=== PATIENT | female | born 1990 | race Hispanic/Latino ===

== ENCOUNTER 2017-02-04 11:38 | Emergency (ER) | payer SELFPAY ==
[2017-02-04 11:54] VITALS: TEMP 97.9
--- NOTE | 2017-02-04 12:13 | C.PDOC ---
History Of Present Illness Patient is a 26 year old female who presents to the ER with a complaint of right sided cervical neck pain radiating to the right arm that began 2 days after patient slipped and fell; denies LOC at the time. Patient also reports intermittent nausea that is not present today and intermittent dizziness that is described as a spinning sensation. Denies fever, headache, vomiting and abdominal pain. Time Seen by Provider: 02/04/17 11:58 Chief Complaint (Nursing): Dizziness/Lightheaded History Per: Patient History/Exam Limitations: no limitations Onset/Duration Of Symptoms: Days Current Symptoms Are (Timing): Still Present Seizure Or Post-ictal Symptoms: None Fall Associated With With Symptoms: Yes Recent travel outside of the [place]: No Past Medical History Reviewed: Historical Data, Nursing Documentation, Vital Signs Vital Signs: Last Vital Signs Temp 97.9 F 02/04/17 11:45 Pulse 76 02/04/17 12:52 Resp 16 02/04/17 12:52 BP 117/76 02/04/17 12:52 Pulse Ox 99 02/04/17 13:38 - Medical History PMH: No Chronic Diseases Surgical History: No Surg Hx Family History: States: Unknown Family Hx - Social History Hx Alcohol Use: Yes Hx Substance Use: No - Immunization History Hx Tetanus Toxoid Vaccination: Yes Hx Influenza Vaccination: No Hx Pneumococcal Vaccination: No Review Of Systems Except As Marked, All Systems Reviewed And Found Negative. Constitutional: Negative for: Fever Gastrointestinal: Positive for: Nausea. Negative for: Vomiting, Abdominal Pain Musculoskeletal: Positive for: Neck Pain (Right sided, cervical area), Arm Pain (Right, radiating from neck) Neurological: Positive for: Dizziness. Negative for: Headache Physical Exam - Physical Exam Appears: Non-toxic, No Acute Distress Skin: Normal Color, Warm, Dry Head: Atraumatic, Normacephalic Oral Mucosa: Moist Neck: Midline Cervical Tenderness (Mild minimal), Paracervical Tenderness ( Muscle spasm of right lateral side) Chest: Symmetrical, No Tenderness Cardiovascular: Rhythm Regular, No Murmur Respiratory: Normal Breath Sounds, No Rales, No Rhonchi, No Wheezing Gastrointestinal/Abdominal: Soft, No Tenderness Neurological/Psych: Oriented x3, Normal Speech, Normal Cognition, Other (No focal deficits) ED Course And Treatment O2 Sat by Pulse Oximetry: 99 (Room air) Pulse Ox Interpretation: Normal - Other Rad cervical xray X-Ray: Interpreted by Me Interpretation: no fx or dislocation Progress Note: Cervical spine x-ray ordered. Reassessment Condition: Improved Disposition Counseled Patient/Family Regarding: Studies Performed, Diagnosis, Need For Followup, Rx Given - Disposition Referrals: [facility] [Outside] [facility] [Outside] [facility] [Outside] Adi Paz MD [Staff Provider] - Disposition: HOME/ ROUTINE Disposition Time: 13:32 Condition: STABLE Additional Instructions: FOLLOW UP WITH PMD AND ENT IN 1-2 DAYS FOR RE-EVALUATION. IF SYMPTOMS GET WORSE OR ANY NEW CONCERNING SYMPTOMS DEVELOP RETURN TO ED. Prescriptions: Meclizine [Meclizine*] 25 mg PO Q6 PRN #30 tab PRN Reason: Dizziness Ibuprofen [Motrin Tab] 1 tab PO Q6H PRN #15 tab PRN Reason: Pain, Moderate (4-7) Instructions: Vertigo (ED), Cervical Sprain (ED) Forms: General Discharge Instructions - Clinical Impression Clinical Impression: Vertigo, Neck sprain - Scribe Statement The provider has reviewed the documentation as recorded by the Scribe Arun Rascon All medical record entries made by the Scribe were at my direction and personally dictated by me. I have reviewed the chart and agree that the record accurately reflects my personal performance of the history, physical exam, medical decision making, and the department course for this patient. I have also personally directed, reviewed, and agree with the discharge instructions and disposition.
[2017-02-04 12:38] LABS: RBC URINE 2 /hpf (0-3); URINE BILIRUBIN NEGATIVE (NEGATIVE); URINE BLOOD NEGATIVE (NEGATIVE); URINE COLOR Yellow (YELLOW); URINE GLUCOSE (UA) NORMAL (Normal); URINE KETONE NEGATIVE (NEGATIVE); URINE LEUKOCYTE ESTERASE NEG Leu/uL (Negative); URINE PROTEIN NEGATIVE (NEGATIVE); URINE UROBILINOGEN NORMAL mg/dL (0.2-1.0); WBC URINE 2 /hpf (0-5)
[2017-02-04 12:52] VITALS: BP 117/76; PULSE 76; RESP 16
[2017-02-04 13:35] VITALS: O2SAT 99
--- NOTE | 2017-02-04 15:50 | RAD ---
PROCEDURE: Cervical Spine Radiographs. HISTORY: Pain. COMPARISON: None. FINDINGS: BONES: Vertebral bodies are maintained in height. Evaluation of the 7th cervical vertebra is technically limited in the lateral projection. The atlantoaxial articulation is intact. The odontoid process is grossly normal. It is partially obscured in the frontal projection. Normal alignment is maintained. There is straightening of the normal lordotic curvature indicating possible muscular spasm. DISC SPACES: Normal. SOFT TISSUES: Normal. No prevertebral soft tissue swelling. OTHER FINDINGS: None. IMPRESSION: No fracture/ dislocation. Possible muscular spasm. Technically limited examination.
== END 2017-02-04 13:41 | disposition home or self-care (01) ==
LOC: C.ER 11:38
DX: S13.9XXA Sprain of joints and ligaments of unspecified parts of neck, initial encounter (principal); W01.0XXA Fall on same level from slipping, tripping and stumbling without subsequent striking against object, initial encounter; Y93.9 Activity, unspecified; Y92.9 Unspecified place or not applicable; R42 Dizziness and giddiness
CPT/HCPCS: 72040; 81001; 84703; 96372; 99285; J1885

== ENCOUNTER 2017-02-13 04:18 | Emergency (ER) | payer SELFPAY ==
[2017-02-13] MEDS ORDERED: Bacitracin 500 Units/gm Oint Foilpak UD ONE (05:12)
[2017-02-13] MEDS ORDERED: Bacitracin 500 Units/gm Oint Foilpak UD TOP ONE (05:25)
--- NOTE | 2017-02-13 05:32 | C.PDOC ---
History Of Present Illness 26 year old female presents to the ED with complaints of a laceration to the right great toe and unsure of mechanism or time it occurred. Patient states she walks with open sandals and received tetanus one year ago. She denies any numbness or weakness. Time Seen by Provider: 02/13/17 04:36 Chief Complaint (Nursing): Abnormal Skin Integrity History Per: Patient History/Exam Limitations: no limitations Onset/Duration Of Symptoms: Unknown (paitnt unsure of when laceration occured ) Current Symptoms Are (Timing): Still Present Location Of Injury: Right: Foot (great toe laceration ) Recent travel outside of the [place]: No Past Medical History Reviewed: Historical Data, Nursing Documentation, Vital Signs Vital Signs: Last Vital Signs Temp 97.3 F L 02/13/17 05:37 Pulse 76 02/13/17 05:37 Resp 24 02/13/17 05:37 BP 126/82 02/13/17 05:37 Pulse Ox 99 02/13/17 06:54 Family History: States: Unknown Family Hx - Social History Hx Alcohol Use: Yes Hx Substance Use: No - Immunization History Hx Tetanus Toxoid Vaccination: Yes Hx Influenza Vaccination: No Hx Pneumococcal Vaccination: No Review Of Systems Constitutional: Negative for: Fever Musculoskeletal: Positive for: Foot Pain (right great toe laceration ) Neurological: Negative for: Weakness, Numbness Physical Exam - Physical Exam Appears: Non-toxic, No Acute Distress Skin: Warm, Dry Head: Atraumatic Eye(s): bilateral: Normal Inspection, PERRL, EOMI Neck: Supple Extremity: Normal ROM, No Tenderness, Capillary Refill (good capillary refill, less than two seconds ), No Deformity, No Swelling, Other (superfical - epidermal laceration with no active bleeding ) Neurological/Psych: Oriented x3 Gait: Steady ED Course And Treatment O2 Sat by Pulse Oximetry: 99 (room air ) Pulse Ox Interpretation: Normal Progress Note: Wound was irrigated with sterile saline and betadine. Bacitracin dressing was applied and discussed with patient proper wound care. Return precautions d/w pt who acknowledged understanding Reassessment Condition: Improved Disposition Counseled Patient/Family Regarding: Diagnosis, Need For Followup, Rx Given - Disposition Disposition: HOME/ ROUTINE Disposition Time: 05:29 Condition: STABLE Additional Instructions: Please follow up with PMD or clinic Keep wound clean Apply bacitracin oint Return to ER if worse Instructions: Laceration Without Closure (ED) - Clinical Impression Clinical Impression: Foot laceration - Scribe Statement The provider has reviewed the documentation as recorded by the Scribfredy Rice All medical record entries made by the Kushibe were at my direction and personally dictated by me. I have reviewed the chart and agree that the record accurately reflects my personal performance of the history, physical exam, medical decision making, and the department course for this patient. I have also personally directed, reviewed, and agree with the discharge instructions and disposition.
[2017-02-13 05:45] VITALS: BP 126/82; PULSE 76; RESP 24; TEMP 97.3
[2017-02-13 06:22] VITALS: O2SAT 99
== END 2017-02-13 06:04 | disposition home or self-care (01) ==
LOC: C.ER 04:18
DX: S91.111A Laceration without foreign body of right great toe without damage to nail, initial encounter (principal); X58.XXXA Exposure to other specified factors, initial encounter